=== PATIENT | female | born 1945 | race Caucasian/White ===

== ENCOUNTER 2022-09-09 16:34 | Emergency (ER) | payer MEDICARE ==
[2022-09-09] MEDS ORDERED: Sodium Chloride 0.9% 10 ML Syringe FLUSH PRN (16:54)
[2022-09-09] MEDS ORDERED: Aspirin 81 MG Tab.Chew PO ONE (16:55)
[2022-09-09] MEDS ORDERED: Albuterol/Ipratropium 3.0-0.5 MG/3 ML Neb Soln NEB ONE (16:55)
[2022-09-09 17:57] LABS: CORONAVIRUS COVID-19 NAA NEGATIVE (NEGATIVE)
[2022-09-09] MEDS ORDERED: Doxycycline 100 MG Cap PO ONE (18:24)
[2022-09-09] MEDS ORDERED: predniSONE 20 MG Tab PO ONE (18:25)
== END 2022-09-09 19:26 | disposition home or self-care (01) ==
LOC: JP.ED 16:34
DX: J44.1 Chronic obstructive pulmonary disease with (acute) exacerbation (principal); R09.02 Hypoxemia; Z72.0 Tobacco use; Z20.822 Contact with and (suspected) exposure to COVID-19; Z99.81 Dependence on supplemental oxygen
CPT/HCPCS: 0241U; 36415; 82803; 84484; 93005; 94640; 99285; A9270; J7512; J7620

== ENCOUNTER 2022-10-04 05:48 | Emergency (ER) | payer MEDICARE ==
[2022-10-04] MEDS ORDERED: methylPREDNISolone Sodium Succinate 125 MG/2 ML SDV IVPUSH ONE (06:06)
[2022-10-04] MEDS ORDERED: LORazepam 0.5 MG Tab PO ONE (06:31)
[2022-10-04 06:52] LABS: ESTIMATED GFR 77 mL/min (>60)
== END 2022-10-04 08:35 | disposition home or self-care (01) ==
LOC: JP.ED 05:48
DX: J44.1 Chronic obstructive pulmonary disease with (acute) exacerbation (principal); Z99.81 Dependence on supplemental oxygen
CPT/HCPCS: 36415; 36600; 71045; 80053; 82803; 83880; 84484; 85025; 93005; 96374; 99285; A9270; J2930; 93010; 99284

== ENCOUNTER 2022-10-22 18:41 | Emergency (ER) | payer MEDICARE | END 2022-10-22 19:49 | disposition home or self-care (01) | LOC: JP.ED 18:41 | DX: J44.1 Chronic obstructive pulmonary disease with (acute) exacerbation (principal); Z72.0 Tobacco use; Z86.16 Personal history of COVID-19 | CPT/HCPCS: 99283 ==